=== PATIENT | female | born 1980 | race Caucasian/White ===

== ENCOUNTER → 2017-08-09 11:02 | Outpatient (CLI) | payer MEDICARE, SELFPAY ==
[2017-08-09 11:49] LABS: Absolute Lymphocyte Count 0.88 X10^3/ul (0.83-4.51); Absolute Neutrophil Count 5.2 X10^3/uL (2.0-7.7); Eosinophil# 0.05 X10^3/uL; Eosinophils% 0.8 % (0-5); Hematocrit 43.2 % (37-47); Hemoglobin 13.9 g/dl (12.0-15.0); Lymphocyte # 0.88 X10^3/ul (4.0); Lymphocyte % 13.2 % (19-41); Mean Corp Hgb Conc 32.2 g/gl (32-36); Mean Corpuscular Hgb 30.9 pg (27.0-32.0); Mean Platelet Vol. 10.6 fl (6.2-12.0); Monocyte# 0.55 X10^3/uL; Monocyte% 8.3 % (0-10); Neutrophil # 5.16 X10^3/uL (2.7-7.7); Neutrophil % 77.4 % (47-70); Platelet Count 262 K/mm3 (150-450); RBC Distribution Width CV 13.4 % (11.6-14.6); RBC Distribution Width SD 47.1 fl (35.1-43.9); White Blood Count 6.7 K/mm3 (4.4-11.0)
[2017-08-09 11:50] LABS: POSITIVE COUNT NO; POSITIVE DIFFERENTIAL NO; POSITIVE MORPHOLOGY NO
[2017-08-13 15:15] LABS: HPV APTIMA, High Risk Positive (Negative)
== END ==
PROVIDERS: Visit Provider Obstetrics & Gynecology
DX: Z12.4 Encounter for screening for malignant neoplasm of cervix (principal); N93.9 Abnormal uterine and vaginal bleeding, unspecified
CPT/HCPCS: 36415; 85025; 88175; G0145

== ENCOUNTER → 2017-08-16 13:17 | Outpatient (CLI) | payer MEDICARE, SELFPAY ==
--- NOTE | 2017-08-16 13:18 | US_ITS ---
STUDY: ULTRASOUND OF THE FEMALE PELVIS - COMPLETE REASON FOR EXAM: Female, 37 years old. Abnormal uterine bleeding. LMP: July 31, 2017 TECHNIQUE: Transabdominal and Transvaginal TECHNICAL QUALITY: Adequate. COMPARISON: None. FINDINGS: The uterus is retroverted and is in a midline position. The uterus measures 8.5 x 5.7 x 4.5 cm. Normal uterine cervix. The endometrium measures 6 mm in thickness, and is heterogeneous (striated). There is no demonstrated endometrial mass. There is heterogeneity of the myometrium. There are 2 small fibroids measuring 1 x 1.1 x 0.8 cm and 0.8 x 0.5 x 0.5 cm respectively. Both lie in the fundus. I.U.D. - The patient does not have an I.U.D. The right ovary is visualized. The right ovary measures 6.4 x 4.6 x 4.0 cm. There is a 3.5 x 3.7 x 3.1 cm cyst with a smaller 2.8 x 2.2 x 1.2 cm adjacent cyst. There is no visualized right adnexal mass or complex lesion. There is normal arterial and normal venous vascularity. The left ovary is visualized. The left ovary measures 4.1 x 4.3 x 1.9 cm. cm. There are cystic follicles with a 2.7 x 2 x 1.5 cm cyst. There is no visualized left adnexal mass or complex lesion. There is normal arterial and normal venous vascularity. There is minimal fluid in the cul-de-sac. US/Transvaginal Non- IMPRESSION: 1. Small subserosal fundal fibroids. 2. Bilateral ovarian cysts. Electronically Signed: Jacques Sharp DO at 16:51 EDT Tel [phone], Service support ,
--- NOTE | 2017-08-16 13:18 | US_ITS ---
STUDY: ULTRASOUND OF THE FEMALE PELVIS - COMPLETE REASON FOR EXAM: Female, 37 years old. Abnormal uterine bleeding. LMP: July 31, 2017 TECHNIQUE: Transabdominal and Transvaginal TECHNICAL QUALITY: Adequate. COMPARISON: None. FINDINGS: The uterus is retroverted and is in a midline position. The uterus measures 8.5 x 5.7 x 4.5 cm. Normal uterine cervix. The endometrium measures 6 mm in thickness, and is heterogeneous (striated). There is no demonstrated endometrial mass. There is heterogeneity of the myometrium. There are 2 small fibroids measuring 1 x 1.1 x 0.8 cm and 0.8 x 0.5 x 0.5 cm respectively. Both lie in the fundus. I.U.D. - The patient does not have an I.U.D. The right ovary is visualized. The right ovary measures 6.4 x 4.6 x 4.0 cm. There is a 3.5 x 3.7 x 3.1 cm cyst with a smaller 2.8 x 2.2 x 1.2 cm adjacent cyst. There is no visualized right adnexal mass or complex lesion. There is normal arterial and normal venous vascularity. The left ovary is visualized. The left ovary measures 4.1 x 4.3 x 1.9 cm. cm. There are cystic follicles with a 2.7 x 2 x 1.5 cm cyst. There is no visualized left adnexal mass or complex lesion. There is normal arterial and normal venous vascularity. There is minimal fluid in the cul-de-sac. US/Pelvic (Non ) IMPRESSION: 1. Small subserosal fundal fibroids. 2. Bilateral ovarian cysts. Electronically Signed: Jacques Sharp DO at 16:51 EDT Tel [phone], Service support ,
== END ==
PROVIDERS: Visit Provider Obstetrics & Gynecology
DX: N93.9 Abnormal uterine and vaginal bleeding, unspecified (principal)
CPT/HCPCS: 76830; 76856; 93976

== ENCOUNTER → 2017-08-25 10:55 | Outpatient (CLI) | payer MEDICARE, SELFPAY ==
--- NOTE | 2017-08-25 16:31 | EKG12_ITS ---
Test Reason : PRE-OP Blood Pressure : / mmHG Vent. Rate : 072 BPM Atrial Rate : 072 BPM P-R Int : 164 ms QRS Dur : 098 ms QT Int : 438 ms P-R-T Axes : 039 -18 073 degrees QTc Int : 479 ms Normal sinus rhythm Lateral infarct , age undetermined Inferior infarct , age undetermined T wave abnormality, consider anterior ischemia Abnormal ECG Confirmed by JAM QUINTANILLA, LILLY ([id number]), electronic news gathering editor MOLINA DUNHAM ([id number]) on 08/27/2017 12:53:12 PM Referred By: Shelby Lake Confirmed By:LILLY POLK MD
[2017-08-25 17:05] LABS: Hematocrit 41.3 % (37-47); Hemoglobin 13.8 g/dl (12.0-15.0); Mean Corp Hgb Conc 33.4 g/gl (32-36); Mean Corpuscular Hgb 31.5 pg (27.0-32.0); Mean Corpuscular Volume 94.3 fL (81-99); Mean Platelet Vol. 10.7 fl (6.2-12.0); Platelet Count 273 K/mm3 (150-450); RBC Distribution Width CV 13.2 % (11.6-14.6); Red Blood Count 4.38 M/mm3 (4.2-5.4); White Blood Count 8.5 K/mm3 (4.4-11.0)
[2017-08-25 17:36] LABS: Scan Indicated on CBC? Y/N NO
[2017-08-25 17:57] LABS: AST(SGOT) 15 U/L (15-37); Alanine Aminotransfer ALT/SGPT 13 U/L (13-56); Albumin, Serum 3.7 g/dL (3.2-5.0); Alkaline Phosphatase 102 U/L (45-117); Anion Gap 9 (5-15); BUN 9 mg/dL (7-18); BUN/Creat Ratio 9.8 RATIO (10-20); Bilirubin, Direct 0.13 mg/dL (0.00-0.30); Calcium,Total 8.6 mg/dL (8.5-10.1); Chloride 104 mmol/L (98-107); Creatinine, Serum 0.92 mg/dL (0.55-1.02); EST Glomerular Filtration Rate 72 mL/min (>60); Est Glom Filt Rate - Afr Amer 87 mL/min (>60); Globulin 4.2 g/dL (2.2-4.2); Glucose 90 mg/dL (74-106); Potassium 3.3 mmol/L (3.5-5.1); Protein, Total 7.9 g/dL (6.4-8.2); Sodium Level 138 mmol/L (136-145)
== END ==
PROVIDERS: Visit Provider Obstetrics & Gynecology
DX: Z01.818 Encounter for other preprocedural examination (principal); E07.9 Disorder of thyroid, unspecified; Z20.828 Contact with and (suspected) exposure to other viral communicable diseases; Z79.899 Other long term (current) drug therapy; F17.200 Nicotine dependence, unspecified, uncomplicated
CPT/HCPCS: 36415; 80048; 80076; 84443; 85027; 86850; 86900; 93005

== ENCOUNTER 2017-10-14 12:37 | Day surgery (SDC) | payer MEDICARE, SELFPAY ==
[2017-10-14] VITALS (17 sets, daily range): BP systolic 102–127; BP diastolic 64–91; PULSE 67–83; RESP 16–19; TEMP 36.4–37.6; O2SAT 96–100; BMI 32.1
--- NOTE | 2017-10-14 | HYST_PTH ---
PATIENT: LETICIA VALVERDE LOC: [facility] – [place] U#:[id number] AGE/SX: 37/F ROOM: RE10/14/[address]: Dr. Shelby Lake MD : 1980 BED: DIS: 10/15/2017 SPEC #: [id number] RECD: 10/15/17 13:24 STATUS: GREGORY BLEVINS #: [id number] SANGITA: 10/14/17 00:[address]: Shelby Lake DEPT: SURGICAL PATHOLOGY RECD BY: Edwin Mosley ENTERED: 10/15/17 13:24 SP TYPE: HYSTERECT OTHR DR: Out of Town Doctor Tissues: Uterus, NOS Procedures: Surgery Specimen Level V HEADER OPERATION: Laparoscopic assisted vaginal hysterectomy, bilateral salpingectomy PRE-OP DIAGNOSIS: Cervical intraepithelial neoplasia grade III with severe dysplasia; abnormal uterine bleeding TISSUE SUBMITTED: Uterus, cervix, bilateral fallopian tubes MICROSCOPIC DIAGNOSIS Uterus, cervix and bilateral fallopian tubes, vaginal hysterectomy and bilateral salpingectomy: Cervix ? squamous metaplasia and focal hyperkeratosis. Negative for dysplasia. See comment. Endometrium ? proliferative endometrium. Myometrium - no pathologic diagnosis. Bilateral fallopian tubes ? consistent with hematosalpinx. SJ:rg 10/19/17 COMMENT The entire cervix is examined. Bilateral fallopian tubes show occluded distal end. Fimbrial ends are not identified in both fallopian tubes. MICROSCOPIC DESCRIPTION Slides are reviewed. GROSS DESCRIPTION Received in fixative is one container labeled with the patient's name and designated uterus, cervix, bilateral fallopian tubes. The specimen consists of a hysterectomy specimen consisting of uterus with cervix and attached bilateral fallopian tubes. The uterus with cervix weighs 73 gm and measures 8 x 6 x 4 cm. The serosal surface is german, glistening. The ectocervical mucosa is unremarkable. The external os is patulous in contour. The ectocervical resection margin is inked black. The endocervical canal measures 3 cm in length and the endocervical mucosa is unremarkable. The cervix is transected at the internal os and the level of transection is inked blue. The endometrial cavity measures 4 cm in length and up to 2.5 cm in width. The endometrium is german, congested without any mass lesion and measures <0.1 cm in thickness. Sections of the uterine wall do not reveal any mass lesion and measures up to 2.2 cm in thickness. The right fallopian tube measures 7.5 cm in length and 0.5 to 3.5 cm in diameter. The distal end of the fimbrial end is replaced by a cyst. No fimbrial end is identified. The distal cystic portion of the right fallopian tube measures 3.5 x 3 x 3 cm. The fallopian tube is filled with bloody fluid. The inner cyst wall is smooth without any papillation. The cyst wall of the fallopian tube measures 0.1 cm in thickness. The left fallopian tube measures 6 cm in length and 0.5 to 1.5 cm in diameter. The fimbrial end is not identified. The fallopian tube measures widest in the distal portion. Sections reveal the lumen contains bloody fluid. Gun Club Manager sections are submitted in 16 cassettes as follows: 1-8 ? cervix like a cone (1 & 2 ? 12 to 3 o?clock, 3 & 4 ? 3 to 6 o?clock, 5 & 6 ? 6 to 9 o?clock, 7 & 8 ? 9 to 12 o?clock), 9 & 10 - anterior uterine wall, 11 & 12 - posterior uterine wall, 13 & 14 ? right fallopian tube (14 contains the cystic portion of the fallopian tube), 15 & 16 ? left fallopian tube. / SJ:ly 10/15/17 TC:5 CPT: 86646
--- NOTE | 2017-10-14 10:00 | HP.PCM_ITS ---
- Problem List (1) Cervical intraepithelial neoplasia grade III with severe dysplasia Status: Chronic (2) Abnormal uterine bleeding Status: Chronic History and Physical Date of Admission: 10/14/17 08/09/17 Height 4 ft 11 in 08/09/17 Weight: 159 lb 4 oz 08/09/17 Body Mass Index (BMI) 32.1 08/09/17 Blood Pressure 113/78 Intake Visit Reasons: Discuss hyst Chief Complaint: Hyst Consult Online Education Manager Required: No Is patient in pain?: No Allergies ciprofloxacin [From Cipro] Allergy (Mild, Verified 08/09/17 10:14) Other diphenhydramine [From Benadryl] Allergy (Mild, Verified 08/09/17 10:14) Other penicillin G Allergy (Mild, Verified 08/09/17 10:14) Other Medications aspirin 81 mg tablet,delayed release PO 08/09/17 [History Confirmed 08/09/17] atorvastatin 20 mg tablet 20 mg PO QDAY 08/09/17 [History Confirmed 08/09/17] levothyroxine 75 mcg tablet PO 08/09/17 [History Confirmed 08/09/17] lisinopril 10 mg tablet 10 mg PO QDAY 08/09/17 [History Confirmed 08/09/17] metoprolol succinate ER 25 mg tablet,extended release 24 hr 25 mg PO BID [History Confirmed 08/09/17] omeprazole 40 mg capsule,delayed release 40 mg PO ONCE 08/09/17 [History Confirmed 08/09/17] spironolactone 25 mg tablet 25 mg PO QAM 08/09/17 [History Confirmed 08/09/17] turmeric root extract 500 mg capsule 500 mg PO QDAY 08/09/17 [History Confirmed 08/09/17] Is last menstrual period known: Yes Last Menstral Period: 07/16/17 Post menopausal: No Patient : No : No PFSH Medical History Congestive heart failure (Acute) Hepatitis B (Acute) Hepatitis C (Acute) Thyroid disease (Acute) Surgical History delivery delivered (Acute) History of cholecystectomy (Acute) History of left knee replacement (Acute) History of liver biopsy (Acute) Family History Mother Cancer vulvar cancer Grandmother Cancer cervical Hypertension Grandfather CVA (cerebral vascular accident) Hypertension Social History Smoking Status: Heavy Smoker (>10/day) alcohol intake: never substance use type: does not use, former substance user 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 she had a severely abnormal pap back in 2013 and never got follow up. she has a history leep in the past. she declines repeat leep and wants to proceed with a hysterectomy. her customer service voice also recommended she follow up with a gauge maker. she has some heavy periods but they only last 2- 3 days and she has increased cramping. Female Reproductive History Last Menstral Period: 07/16/17 Cycle Length: 21-35 Frequency of changing protection: every hour double protection associated symptoms: dysmenorrhea Questions: Metorrhagia: Yes, Sexually active: No Pregancy History 1 Elective abortions Hx Para 1 Spontaneous abortions Hx # Term Pregnancies Ectopic pregnancies Hx # Pregnancies Multiple births # of living children Past Pregnancies Del. Date Name GA/Weeks Outcome Route Bth Weight Infant Gen Labor Lgth Anesthesia Del Locatn Provider FOB Unknown 1996 Chandrakant JONG Const Constitutional: Denies poor appetite, headache(s), fever(s), increased appetite , weight gain, weight loss or fatigue Cardio Card: Denies chest pain Resp Resp: Denies dyspnea or cough GI GI: Reports as per HPI; denies vomiting, nausea, abdominal pain or constipation : Reports as per HPI; denies urinary urgency, vaginal discharge, urinary frequency, vaginal itching, vaginal odor, vaginal dryness, urinary incontinence, urinary hesitancy, difficulty urinating, painful urination or nipple discharge Skin Skin/Breast: Denies breast lump, breast pain, breast skin changes, nipple discharge or change in hair Exam Const General: cooperative, healthy appearing, comfortable, no acute distress, well developed Nutritional Appearance: average body habitus Orientation: alert HENMT Head: normal to inspection, normocephalic Neck Neck: normal visual inspection, trachea midline Thyroid: thyroid normal Resp Effort & Inspection: normal respiratory effort GI Inspection: normal to inspection, non-distended Palpation: soft, no hepatosplenomegaly General: bladder normal to palpation External Female Exam: normal external appearance, normal appearance of the urethra Urethra: normal appearance of the urethra, normal palpation, no discharge Speculum Exam - Vagina: normal appearance of the vagina, normal vaginal discharge Speculum Exam - Cervix: normal appearance of the cervix, nontender Bimanual Exam- Vagina & Uterus: bladder normal to palpation, No cervical tenderness, normal bimanual exam, uterine size normal, uterine shape normal, uterine mobility normal, uterine consistency normal, normal cervical palpation, uterus non-tender Bimanual Exam- Adnexa, other: normal adnexae, adnexae mobile, no adnexal masses , pelvic support normal Pelvic Support: normal Skin General: no rashes or lesions noted Assessment & Plan Problems 1. Cervical intraepithelial neoplasia grade III with severe dysplasia D06.9 2. Abnormal uterine bleeding N93.9 Plan discussed with patient at length- patient has had a leep in the past and a repeat leep was recommended to her or a hysterectomy in the past and she wants to proceed with the hysterectomy. she has some irregular heavy bleeding and again is asking for a hysterectomy. I discussed with the patient risks of surgery including risks of anesthesia, bleeding, infection, damage to surrounding structures such as bowel, bladder, or vasculature that could lead to additional surgery to repair. I discussed the risk of needing to convert to open abdominal procedure if unable to perform the procedure laparoscopically. patient wishes to proceed with hysterectomy. patient has had medical clearance and cardiac clearance, thyroid optimized prior to surgery Orders Orders: CBC W/Diff, Automated 08/09/17 N93.9 Pelvic (Non ) 08/09/17 N93.9 Transvaginal Non- 08/09/17 N93.9 Coding Level of Care Code Off vis,new,level 4 Diagnoses Cervical intraepithelial neoplasia grade III with severe dysplasia D06.9 Abnormal uterine bleeding N93.9 i have seen the patient and made any clinically relevant updates to the h and p
[2017-10-14 13:19] LABS: Internal QC Validated? YES +Cl - CLEAR BKGD; Pregnancy, Urine Negative Negative
[2017-10-14] MEDS: Phenazopyridine 95 MG Tablet PO (13:50)
[2017-10-14] MEDS: Bupivacaine 0.25% 30 ML Vial (14:34)
[2017-10-14] MEDS: Vasopressin 20 UNITS/ML Vial (14:35)
[2017-10-14] MEDS: Clindamycin 900 MG/50 ML BAG 75 MG IV (14:44)
[2017-10-14] MEDS: Lubricating Jelly 60 GM Tube 30 GM TOPICAL (15:03)
[2017-10-14] MEDS: Furosemide 20 MG/2 ML VIAL 5 MG IV (19:03)
[2017-10-14] MEDS: HYDROmorphone 1 MG/ML Syringe IV (20:00)
[2017-10-14] MEDS: Acetaminophen 500 MG Tablet 1000 MG PO (21:34)
[2017-10-14] MEDS: Lisinopril 10 MG Tablet PO (21:35)
[2017-10-14] MEDS: oxyCODONE 5 MG Tablet PO (21:40)
[2017-10-14] MEDS: Ketorolac 30 MG/ML Syringe IV (23:38)
[2017-10-14] MEDS: Lactated Ringers 1,000 ML 125 ML IV (23:39)
[2017-10-15] VITALS (7 sets, daily range): BP systolic 102–121; BP diastolic 60–76; PULSE 75–104; RESP 12–18; TEMP 37–37.1; O2SAT 95–99
--- NOTE | 2017-10-15 04:11 | NURSING ---
Noticed on the chip mixer that pt had her leads off. When I went back to the room she was standing at the end of her bed with her SCDS still plugged in and her louis stretched from the side of the bed. When I asked her what she was doing she said she just needed to get up. She wanted to go to the chair so I helped her to do so after unplugging her SCDS and grabbing the louis bag off the side of the bed. Once I got the pt in the chair, I attempted to straighten out her telemetry leads. I found a pack of cigarettes down her gown. I told her you know you aren't allowed to smoke in here right? She responded, I was going to outside. I advised her that she was a new postop and could not go outside to smoke. Cigarettes were placed in med drawer and locked up. Sommer PINZON aware.
[2017-10-15] MEDS: Ketorolac 30 MG/ML Syringe IV ×2 (05:21→11:26)
[2017-10-15] MEDS: Acetaminophen 500 MG Tablet 1000 MG PO (05:21)
[2017-10-15] MEDS: Levothyroxine 112 MCG Tablet PO (05:22)
[2017-10-15 06:09] LABS: Hematocrit 37.8 % (37-47); Hemoglobin 12.5 g/dl (12.0-15.0); Mean Corp Hgb Conc 33.1 g/gl (32-36); Mean Corpuscular Hgb 31.2 pg (27.0-32.0); Mean Corpuscular Volume 94.3 fL (81-99); Mean Platelet Vol. 10.9 fl (6.2-12.0); Platelet Count 270 K/mm3 (150-450); RBC Distribution Width CV 12.9 % (11.6-14.6); RBC Distribution Width SD 43.2 fl (35.1-43.9); Red Blood Count 4.01 M/mm3 (4.2-5.4); White Blood Count 14.5 K/mm3 (4.4-11.0)
[2017-10-15 06:11] LABS: Scan Indicated on CBC? Y/N NO
[2017-10-15] MEDS: Spironolactone 25 MG Tablet PO (10:12)
[2017-10-15] MEDS: Aspirin E.C. 81 MG Tablet PO (10:13)
[2017-10-15] MEDS: Atorvastatin Calcium 20 MG Tablet PO (10:13)
[2017-10-15] MEDS: Enoxaparin 40 MG/0.4 ML Syringe SC (10:13)
[2017-10-15] MEDS: Pantoprazole Sodium 40 MG Tablet PO (10:14)
[2017-10-15] MEDS: Metoprolol(XL)Succ 25 MG Tablet PO (10:14)
[2017-10-15] MEDS: 0.9% NaCl Peripheral Flush Adult/Peds IV (11:26)
--- NOTE | 2017-10-15 11:34 | PCM.OPRPT ---
Problem List (1) Cervical intraepithelial neoplasia grade III with severe dysplasia Status: Chronic (2) Abnormal uterine bleeding Status: Chronic Report of Operation Date of Procedure: 10/14/17 Pre-Operative Diagnosis: cervical dysplasia AUB Post-Operative Diagnosis: same Surgery/Procedure Performed:: lavh bs cystoscopy omero Description of Surgical Findings:: dense bladder to uterine adhesions game and fish protector: Sahara Montanez Type of Anesthesia:: General Specimen's removed: uterus tubes Estimated Blood Loss (mL): 100 Fluids Replaced: crystalloid Description of Procedure: Patient received preoperative antibiotics and SCDs were on preoperatively. Patient was taken back to the operating room and placed in the dorsal lithotomy position. General anesthesia was induced and patient was prepped and draped in normal sterile fashion. Uterine manipulator was placed inside the uterus and Louis catheter placed in the bladder. The umbilicus was grasped with towel clamps and an intraumbilical incision was made after injecting with quarter percent Marcaine and a Veress needle entered into the abdomen confirmed to be intra-abdominal with a low opening pressure. Abdomen was insufflated with CO2 gas and the Veress needle removed and the 5 mm trocar was placed under direct visualization without complication. Right and left lower quadrants were transilluminated and injected with quarter percent Marcaine and 5 mm ports placed under direct visualization. Pelvis was well visualized see operative findings for additional information. Bilateral fallopian tubes were identified and transected with the LigaSure device across the mesosalpinx to the level of the utero-ovarian ligament which was also transected with the LigaSure device. The broad ligament was opened up by transecting the round ligament bilaterally and skeletonizing the uterine vessels bilaterally and creating a bladder flap using the LigaSure device. dense adhesions were encountered which were taken down carefully and serially with sharp, hydro, blunt, and dissection witht he monopolar scissors. The uterine arteries were transected bilaterally with good visualization of the bladder and the ureters were seen to be inferior lateral to the operative area. Attention was then paid to the vaginal portion of the procedure and the cervix was grasped with Claudia clamps and circumferentially injected with dilute vasopressin. A circumferential incision was made and the vaginal mucosa was mobilized off posteriorly and the cul-de-sac entered into sharply and a longneck speculum placed. The anterior cul-de-sac was then identified and entered into sharply. The uterosacral ligaments were clamped cut and suture ligated with 0 Monocryl bilaterally followed by the cardinal ligaments which were clamped cut and suture ligated bilaterally with 0 Monocryl. The uterus serially descended and was removed without difficulty with minimal morcellation. Pelvic sidewall pedicles were checked and noted to have excellent hemostasis. The vaginal mucosa was reapproximated incorporating the posterior peritoneum. This was reapproximated using 0 Vicryl [id number] sutures. Excellent hemostasis was noted. The cystoscopy was then performed and bilateral ureteral strong spray was noted and the bladder was noted to have no abnormality or lesions seen. Louis catheter was replaced and then attention paid to the abdominal portion of the procedure again. The pelvis and cul-de-sac was well visualized and no significant active bleeding noted but some raw areas were seen on the peritoneum and therefore Ora was applied. Pressure was taken down and the areas visualized and noted of excellent hemostasis. All ports were removed under direct visualization without complication and the abdomen was desufflated of air. The instruments removed from the abdomen and the vagina vaginal sweep was negative. Port sites on the abdomen were closed with 4-0 Monocryl interrupted sutures and Steri's and windows were applied. She was awoken and taken recovery in stable condition. Grafts/Implants Used: louis - Complications none
--- NOTE | 2017-10-15 11:38 | PCM.DC.VHY ---
Discharge Diet: No Restrictions Discharge Activity: Return to Normal Activity, May Not Drive, May Shower May resume sexual activity in: 6-8 weeks Call your doctor if your incision/area has: Continuous Slow Oozing, Sudden Increased Bleeding, Increased Pain/ Swelling, Increased Redness, Foul Smelling Discharge Call your doctor if you observe: Fever of 101 or Higher, Inability to urinate, Inability to have a bowel movement, Using more than one pad per hour Allergies/Adverse Reactions: Allergies ciprofloxacin [From Cipro] Allergy (Mild, Verified 10/14/17 19:51) leg cramps diphenhydramine [From Benadryl] Allergy (Mild, Verified 10/14/17 19:51) blisters penicillin G Allergy (Mild, Verified 10/14/17 19:51) pt is unsure of reaction Medications to take at Discharge aspirin 81 mg tablet,delayed release 81 mg PO DAILY 08/09/17 atorvastatin 20 mg tablet 20 mg PO DAILY 08/09/17 levothyroxine 75 mcg tablet 112 mcg PO DAILY 08/09/17 lisinopril 10 mg tablet 10 mg PO QHS 08/09/17 metoprolol succinate ER 25 mg tablet,extended release 24 hr 25 mg PO DAILY 08/09/17 omeprazole 40 mg capsule,delayed release 40 mg PO DAILY 08/09/17 spironolactone 25 mg tablet 25 mg PO DAILY 08/09/17 turmeric root extract 500 mg capsule 500 mg PO DAILY 08/09/17 Naproxen [Naprosyn] 250 - 500 mg PO Q8H PRN PRN #30 tab 10/14/17 Oxycodone HCl/Acetaminophen [Percocet 5-325] 2 tablet PO Q4H PRN PRN 7 Days #28 tablet 10/14/17 The following prescriptions were given: Oxycodone HCl/Acetaminophen [Percocet 5-325] 2 tablet PO Q4H PRN PRN 7 Days #28 tablet PRN Reason: Moderate-Severe pain Naproxen [Naprosyn] 250 - 500 mg PO Q8H PRN PRN #30 tab PRN Reason: MILD PAIN Primary Care Physician: Carolynn Rivera,Out of [Primary Care Provider] - Please Follow Up With: Shelby Lake MD - [phone]
--- NOTE | 2017-10-15 11:39 | PCM.PN.OB ---
Subjective: doing well improved UO pain controlled ambulating tolerating po no CP SOB N V - Physical Exam General: Alert, Oriented x3 Vital Signs Temp Pulse Resp BP Pulse Ox 98.6 F 91 16 103/68 97 10/15/17 08:22 10/15/17 10:14 10/15/17 08:22 10/15/17 08:22 10/15/17 08:22 Oxygen Delivery Method Room Air Weight: 159 lb 2.78 oz Body Mass Index (BMI) 32.1 Intake and Output for Last 24 Hours 10/13/17 10/14/17 10/15/17 23:59 23:59 23:59 Intake Total 3229 / 3229 863 / 863 Output Total 505 / 505 700 / 700 Balance 2724 / 2724 163 / 163 Laboratory Tests Past 24 Hrs 10/14/17 10/14/17 10/15/17 13:10 13:20 05:24 WBC 14.5 H RBC 4.01 L Hgb 12.5 Hct 37.8 MCV 94.3 MCH 31.2 MCHC 33.1 RDW 12.9 RDW Differential 43.2 Plt Count 270 MPV 10.9 Urine Test Negative Blood Type B POSITIVE Antibody Screen NEGATIVE Medical Necessity - Tobacco Use Smoking Status: Heavy Smoker (>10/day) Assessment/Plan s/p [facility] care doing well dc home continue home meds
== END 2017-10-15 13:13 | disposition home or self-care (01) ==
LOC: SDC 12:38 → AC 12:39 → MS3 10-15 11:42
PROVIDERS: Visit Provider Obstetrics & Gynecology
PROC: 0UT9FZZ Resection of Uterus, Via Natural or Artificial Opening With Percutaneous Endoscopic Assistance (ICD-10-PCS; CPT 58552; principal; 2017-10-14 14:35)
DX: D06.9 Carcinoma in situ of cervix, unspecified (principal); N93.8 Other specified abnormal uterine and vaginal bleeding; Z79.899 Other long term (current) drug therapy; Z79.82 Long term (current) use of aspirin; I10 Essential (primary) hypertension; G25.81 Restless legs syndrome; Z86.19 Personal history of other infectious and parasitic diseases; F11.11 Opioid abuse, in remission; K21.9 Gastro-esophageal reflux disease without esophagitis; E78.00 Pure hypercholesterolemia, unspecified; M06.9 Rheumatoid arthritis, unspecified
CPT/HCPCS: 00940; 58552; 36415; 81025; 85027; 86850; 86900; 88307; 97802; J7120; A4216; J1940; J2405

== ENCOUNTER → 2017-11-15 18:09 | Outpatient (CLI) | payer MEDICARE, SELFPAY | PROVIDERS: Visit Provider Obstetrics & Gynecology | DX: R30.0 Dysuria (principal) | CPT/HCPCS: 87086; 87088; 87186 ==

== ENCOUNTER → 2019-09-26 15:23 | Outpatient (CLI) | payer MEDICARE, SELFPAY ==
[2019-09-26 15:11] VITALS: BMI 33.3
[2019-09-26 15:44] LABS: Absolute Lymphocyte Count 3.93 X10^3/uL (0.83-4.51); Absolute Neutrophil Count 4.7 X10^3/uL (2.0-7.7); Basophil# 0.04 X10^3/uL; Basophil% 0.4 % (0-1); Eosinophil# 0.22 X10^3/uL; Eosinophils% 2.3 % (0-5); Hematocrit 42.7 % (37-47); Lymphocyte # 3.93 X10^3/ul (4.0); Lymphocyte % 40.4 % (19-41); Mean Corp Hgb Conc 32.8 g/dL (32-36); Mean Corpuscular Hgb 31.5 pg (27.0-32.0); Mean Platelet Vol. 10.1 fl (6.2-12.0); Monocyte# 0.79 X10^3/uL; Monocyte% 8.1 % (0-10); NRBC Flagged by Analyzer 0 % (0-5); Neutrophil # 4.72 X10^3/uL (2.7-7.7); Neutrophil % 48.5 % (47-70); Platelet Count 258 K/mm3 (150-450); RBC Distribution Width CV 12.7 % (11.6-14.6); RBC Distribution Width SD 45.2 fl (35.1-43.9); Red Blood Count 4.45 M/mm3 (4.2-5.4); White Blood Count 9.7 K/mm3 (4.4-11.0)
[2019-09-26 16:06] LABS: Estradiol 39.6 pg/mL; Follicle Stimulating Hormone 55.8 mIU/mL
== END ==
PROVIDERS: Nurse Practitioner Women's Health; Referring Provider Obstetrics & Gynecology; Visit Provider Obstetrics & Gynecology
DX: E03.9 Hypothyroidism, unspecified (principal); R23.2 Flushing
CPT/HCPCS: 36415; 82670; 83001; 85025

== ENCOUNTER → 2019-10-03 11:52 | Outpatient (CLI) | payer MEDICARE, SELFPAY ==
[2019-09-26 15:11] VITALS: BMI 33.3
[2019-09-27 08:49] VITALS: BMI 33.3
--- NOTE | 2019-10-03 11:53 | BI_ITS ---
MAMMOGRAPHY - BILATERAL SCREENING REASON FOR EXAM: Female, 39 years old. Routine annual screening examination. PERTINENT HISTORY: Non-contributory. TECHNIQUE: Digital bilateral breast sarwat (3D mammographic acquisition) in the CC and MLO projections. 2-D mediolateral oblique (MLO) and craniocaudad (CC) views of both breasts were obtained. CAD: Full Field Digital Mammography with Computer Added Detection was performed. COMPARISON: None. Baseline examination. FINDINGS: Breast Composition: There are scattered areas of fibroglandular density. There are no dominant masses or suspicious calcifications. No other significant abnormalities are identified. BI/SCREEN MAMM (CAD) W/SARWAT BILAT IMPRESSION: Negative screening mammogram. Yearly followup mammogram recommended. (A) ASSESSMENT CATEGORY: BIRADS Category 1: Negative. A letter regarding these results will be sent to the patient by the facility within 30 days. Approximately 10% of breast cancers are not detected by mammography. A normal mammogram should not delay biopsy of a clinically suspicious abnormality. [id number] Electronically Signed: Alec Gao, at 12:44 EDT , Service support ,
== END ==
PROVIDERS: Referring Provider Nurse Practitioner Women's Health; Visit Provider Nurse Practitioner Women's Health
DX: Z12.31 Encounter for screening mammogram for malignant neoplasm of breast (principal)
CPT/HCPCS: 77063; 77067

== ENCOUNTER 2022-05-04 14:42 | Outpatient (CLI) | payer MEDICARE, MEDICAID, SELFPAY ==
[2022-05-19 22:24] LABS: HPV APTIMA, High Risk Negative (Negative)
[2022-05-19 22:25] LABS: HPV Reflexed? YES, CHARGE PATIENT
== END 2022-05-04 23:59 | disposition home or self-care (01) ==
LOC: LABSPEC 14:44
PROVIDERS: Visit Provider Obstetrics & Gynecology
DX: D06.9 Carcinoma in situ of cervix, unspecified (principal)
CPT/HCPCS: 87624; 88175; G0145

== ENCOUNTER → 2022-05-04 | Outpatient (CLI) | payer MEDICARE, MEDICAID, SELFPAY | END | disposition home or self-care (01) | LOC: OPBI 07-01 15:09 | PROVIDERS: Visit Provider Obstetrics & Gynecology | DX: Z12.31 Encounter for screening mammogram for malignant neoplasm of breast (principal) | CPT/HCPCS: G0101 ==

== ENCOUNTER → 2022-05-11 | Outpatient (CLI) | payer MEDICARE, SELFPAY ==
--- NOTE | 2022-05-11 13:01 | US_ITS ---
STUDY: ULTRASOUND OF THE FEMALE PELVIS - COMPLETE REASON FOR EXAM: Female, 42 years old. DYSPARENIA TECHNIQUE: Endovaginal. Transvaginal US was obtained to better visualized the ovaries. COMPARISON: None. FINDINGS: The uterus is surgically absent. There is nonvisualization of the right ovary due to overlying bowel gas. The left ovary is visualized. The left ovary measures 3 x 1.4 cm. There is no left ovarian cyst or ovarian mass. There is no visualized left adnexal mass or complex lesion. There is normal arterial and normal venous vascularity. There is no fluid in the cul-de-sac. Urinary bladder volume is (in cc) 134. US/Pelvic (Non ) IMPRESSION: There are no acute findings. Electronically Signed: Alvaro Leblanc MD at 20:17 EST ,
--- NOTE | 2022-05-11 13:01 | US_ITS ---
STUDY: ULTRASOUND OF THE FEMALE PELVIS - COMPLETE REASON FOR EXAM: Female, 42 years old. DYSPARENIA TECHNIQUE: Endovaginal. Transvaginal US was obtained to better visualized the ovaries. COMPARISON: None. FINDINGS: The uterus is surgically absent. There is nonvisualization of the right ovary due to overlying bowel gas. The left ovary is visualized. The left ovary measures 3 x 1.4 cm. There is no left ovarian cyst or ovarian mass. There is no visualized left adnexal mass or complex lesion. There is normal arterial and normal venous vascularity. There is no fluid in the cul-de-sac. Urinary bladder volume is (in cc) 134. US/Transvaginal Non- IMPRESSION: There are no acute findings. Electronically Signed: Alvaro Leblanc MD at 20:17 EST ,
--- NOTE | 2022-05-11 14:01 | BI_ITS ---
MAMMOGRAPHY - BILATERAL SCREENING REASON FOR EXAM: Female, 42 years old. Routine annual screening examination. PERTINENT HISTORY: Non-contributory. TECHNIQUE: Digital bilateral breast sarwat (3D mammographic acquisition) in the CC and MLO projections. 2-D mediolateral oblique (MLO) and craniocaudad (CC) views of both breasts were obtained. CAD: Full Field Digital Mammography with Computer Added Detection was performed. COMPARISON: Comparison is made with prior study dated 10/03/2019. FINDINGS: Breast Composition: There are scattered areas of fibroglandular density. There are no dominant masses or suspicious calcifications. Stable fat-containing bilateral axillary lymph nodes. No other significant abnormalities are identified. There has been no significant change since the prior study. BI/SCRN MAMM (CAD)W/SARWAT BILAT IMPRESSION: Stable bilateral screening mammogram. Yearly follow-up mammogram recommended. (A) ASSESSMENT CATEGORY: BIRADS Category 2: Benign. A letter regarding these results will be sent to the patient by the facility within 30 days. Approximately 10% of breast cancers are not detected by mammography. A normal mammogram should not delay biopsy of a clinically suspicious abnormality. [id number] Electronically Signed: Alec Gao MD at 8:56 EST ,
== END | disposition home or self-care (01) ==
PROVIDERS: Visit Provider Obstetrics & Gynecology
DX: R10.2 Pelvic and perineal pain (principal); Z12.31 Encounter for screening mammogram for malignant neoplasm of breast
CPT/HCPCS: 76830; 76856; 77063; 77067